=== PATIENT | male | born 1985 | race Caucasian/White ===

== ENCOUNTER 2017-07-01 18:48 | Emergency (ER) | payer SELFPAY ==
[~2017-07-01] VITALS: Ht 195.6 cm; Wt 122.5 kg
[2017-07-01 19:10] VITALS: BP 176/98
[2017-07-01] MEDS ORDERED: NAPR500T PO (19:20)
[2017-07-01] MEDS ORDERED: PENI500T PO (19:20)
--- NOTE | 2017-07-01 19:21 | PHYS DOC ---
Adult General Chief Complaint Chief Complaint: DENTAL PROBLEM HPI HPI Patient is a 32 year old male presents to the emergency department with complaints of left lower dental pain. He states he's had dental decay for a long time. He has no primary dentist. He states that the pain increased over the last week. He has no fever, no difficulty with swallowing or phonation. Review of Systems Review of Systems Constitutional: Denies fever or chills [] Eyes: Denies change in visual acuity, redness, or eye pain [] HENT: Denies nasal congestion or sore throat, complaining of dental pain [] Respiratory: Denies cough or shortness of breath [] Cardiovascular: No additional information not addressed in HPI [] GI: Denies abdominal pain, nausea, vomiting, bloody stools or diarrhea [] : Denies dysuria or hematuria [] Musculoskeletal: Denies back pain or joint pain [] Integument: Denies rash or skin lesions [] Neurologic: Denies headache, focal weakness or sensory changes [] Endocrine: Denies polyuria or polydipsia [] Physical Exam Physical Exam Constitutional: Well developed, well nourished, no acute distress, non-toxic appearance. [] HENT: Normocephalic, atraumatic, bilateral external ears normal, oropharynx moist, no oral exudates, nose normal. Tooth #18 with decay, tender to palpate, surrounding gingival erythema [] Eyes: PERRLA, EOMI, conjunctiva normal, no discharge. [] Neck: Normal range of motion, no tenderness, supple, no lymphadenopathy Cardiovascular:Heart rate regular rhythm, no murmur [] Lungs & Thorax: Bilateral breath sounds clear to auscultation [] Abdomen: Bowel sounds normal, soft, no tenderness, no masses, no pulsatile masses. [] Skin: Warm, dry, no erythema, no rash. [] Back: No tenderness, no CVA tenderness. [] Extremities: No tenderness, no cyanosis, no clubbing, ROM intact, no edema. [] Neurologic: Alert and oriented X 3, normal motor function, normal sensory function, no focal deficits noted. [] Psychologic: Affect normal, judgement normal, mood normal. [] EKG EKG [] Radiology/Procedures Radiology/Procedures [] Course & Med Decision Making Course & Med Decision Making Pertinent Labs and Imaging studies reviewed. (See chart for details) [] Dragon Disclaimer Dragon Disclaimer This electronic medical record was generated, in whole or in part, using a voice recognition dictation system. Departure Departure Impression: Primary Impression: Dental abscess Disposition: 01 HOME, SELF-CARE Condition: STABLE Referrals: MARYLIN PRETTY MD (PCP) Patient Instructions: Dental Abscess Scripts Naproxen (NAPROSYN) 500 Mg Tablet 500 MG PO BID Y for PAIN, #20 TAB Prov: DUSTY DOMINGO APRN 07/01/17 Penicillin V Potassium (PENICILLIN V POTASSIUM) 500 Mg Tablet 1 TAB PO QID, #40 TAB Prov: DUSTY DOMINGO APRN 07/01/17 DUSTY DOMINGO APRN Jul 01, 2017 19:21
[2017-07-01] MEDS ORDERED: ACETAMINOPHEN/CODEINE 300/30MG TABLET. PO ONE (19:30)
== END 2017-07-01 19:35 | disposition home or self-care (01) ==
LOC: ER 18:48
DX: K04.7 Periapical abscess without sinus (principal); K02.9 Dental caries, unspecified
CPT/HCPCS: 99283